=== PATIENT | female | born 1980 | race Caucasian/White ===

== ENCOUNTER 2016-07-20 20:42 | Emergency (ER) | payer SELFPAY ==
--- NOTE | 2016-07-28 13:49 | ER ---
ADMIT: 07/20/2016 RM/LOC: ER [facility] MR#: [id number] [address] [place], [place] [id number] JANE ERICKSON [address] [place], [place] [id number] Emergency Room Report SEX: F AGE: 36 : 1980 DATE: 07/20/2016 ADDENDUM: CHIEF COMPLAINT: Constipation. HISTORY OF PRESENT ILLNESS: A 36-year-old, who has not really had a good bowel movement in about 3 weeks. She has been taking MiraLAX every other day. She has also taken some Dulcolax, said her last bowel movement was 2 days ago, but it was very hard and small stools. She has been having increased pain, just feels very bloated, is not getting relief. I did a KUB, it does show that she has moderate amount of stool especially on the ascending colon. I did offer her enema. At this time, she wants to hold off on enema. I am giving her magnesium citrate. She has been drinking half a bottle now and half of the bottle in the morning, and hopefully, she will have a good bowel movement within the next 24 hours. Told her to continue the MiraLAX, take daily until she has a good bowel movements then as needed. I am giving her Dr. Dariusz Mcgowan for followup to continue care. CLINICAL IMPRESSION: Constipation. COLTON Granado / Ash Crump MD / lenora JOB #: [id number] CC: Ash Crump MD, Attending Physician
== END 2016-07-20 22:30 | disposition home or self-care (01) ==
LOC: ER 20:42
DX: K59.00 Constipation, unspecified (principal); F17.210 Nicotine dependence, cigarettes, uncomplicated; Z79.899 Other long term (current) drug therapy